=== PATIENT | male | born 1950 | race Caucasian/White ===

== ENCOUNTER 2020-09-08 18:39 | Emergency (ER) | payer MEDICARE, SELFPAY ==
--- NOTE | ~2020-09-08 | XR_ITS ---
EXAMINATION: XR hip RT 2V w AP pelvis INDICATION: Right hip pain TECHNIQUE: AP view the pelvis and two views of the right hip are obtained. COMPARISON: CT, 12/22/2018 FINDINGS: Bone alignment is normal. There is no fracture. There are phleboliths of the pelvis. Calcif ied atherosclerosis is noted. IMPRESSION: 1. No displaced fracture identified. If there is high clinical suspicion for fracture, consider CT. Reviewed, dictated and finalized at location A. [facility] IMPRESSION: 1. No displaced fracture identified. If there is high clinical suspicion for fr acture, consider CT.
[2020-09-08 18:42] VITALS: BP 169/82; PULSE 68; RESP 14; TEMP 36.7; O2SAT 98
--- NOTE | 2020-09-08 20:22 | ED.FALL ---
HPI - Fall General Chief Complaint: Fall Stated Complaint: right hip pain, fall Time Seen by Provider: 09/08/20 20:16 Source: patient Mode of arrival: ambulatory Limitations: no limitations History of Present Illness HPI Narrative: Patient is a 69-year-old male complaining of right hip pain after he fell off his hammock prior to arrival. Patient's he was trying to get off and he lost his balance and fell on this right side. Patient states his pain is a 4 out of 10, aching, nonradiating. Patient denies any head, neck, chest, abdomen, back or any other extremity pain/injury. Patient denies any LOC. Patient states his pain is mild and does not want anything for pain at this time. Related Data Home Medications Medication Instructions Recorded Confirmed aspirin 81 mg tablet,delayed 81 mg PO DAILY 06/23/19 release atorvastatin 40 mg tablet 40 mg PO DAILY 06/23/19 carvedilol 3.125 mg tablet 3.125 mg PO Q12H 06/23/19 doxycycline hyclate 100 mg capsule 100 mg PO DAILY 06/23/19 ezetimibe 10 mg tablet 10 mg PO DAILY 06/23/19 lisinopril 40 mg tablet 40 mg PO DAILY 06/23/19 Allergies Allergy/AdvReac Type Severity Reaction Status Date / Time Sulfa (Sulfonamide Allergy Intermediate Unverified 09/14/19 11:55 Antibiotics) atorvastatin Allergy Unknown Myalgias Verified 09/14/19 11:55 Review of Systems Review of Systems: All systems reviewed & are unremarkable except as noted in HPI and below Constitutional: Constitutional: Denies body ache(s), Denies chills, Denies excessive sweating, Denies fatigue, Denies fever(s), Denies headache(s), Denies lethargy, Denies malaise, Denies weakness and Denies weight loss Eyes: Eyes: Denies blurry vision, Denies change in vision and Denies loss of vision ENT: Denies dizziness, Denies ear discharge, Denies headache(s), Denies lip swelling, Denies epistaxis, Denies nasal congestion, Denies neck pain, Denies throat swelling and Denies tongue swelling Cardiovascular: Cardiovascular: Denies chest pain, Denies chest pain at rest, Denies chest pain with activity, Denies diaphoresis, Denies rapid heart rate, Denies edema, Denies irregular heart rhythm, Denies lightheadedness, Denies palpitations, Denies dyspnea and Denies dyspnea on exertion Respiratory: Respiratory: Denies chest congestion, Denies cough, Denies hemoptysis, Denies dyspnea and Denies dyspnea on exertion Gastrointestinal: Gastrointestinal: Denies abdominal pain, Denies melena, Denies hematochezia, Denies diarrhea, Denies nausea, Denies vomiting and Denies hematemesis Musculoskeletal: Musculoskeletal: Denies abnormal gait, Denies deformity, Denies joint swelling, Denies limited range of motion, Denies neck pain and Denies numbness Neurologic: Denies Abnormal speech present, Denies abnormal gait, Denies confusion, Denies dizziness, Denies headache(s), Denies focal weakness, Denies loss of vision, Denies numbness, Denies Other visual disturbances, Denies Sensory deficit (Neuro) and Denies weakness Psychiatric: Psychiatric: Denies confusion, Denies depression, Denies auditory hallucinations, Denies homicidal ideation and Denies suicidal ideation Endocrine: Endocrine: Denies cold intolerance, Denies excessive sweating, Denies fatigue, Denies heat intolerance and Denies palpitations Hematologic/Lymphatic: Hematologic/Lymphatic: Denies easy bleeding and Denies easy bruising Allergic/Immunologic: Allergic/Immunologic: Denies lip swelling, Denies throat swelling and Denies tongue swelling PMFSH Family History Family History Father Diabetes mellitus Hypertension Family history of elevated blood lipids Other Family history of cardiovascular disease Family history of coronary artery disease Family history of malignant neoplasm of uterus Social History Social History Smoking status: Former smoker Second hand tobacco smoke e
[2020-09-08 21:22] VITALS: BP 159/88; PULSE 68; RESP 16; TEMP 36.7; O2SAT 98
== END 2020-09-08 21:23 | disposition home or self-care (01) ==
LOC: ANHED 20:37
PROVIDERS: Emergency Provider Emergency Medicine; PCP Student in an Organized Health Care Education/Training Program
DX: S76.011A Strain of muscle, fascia and tendon of right hip, initial encounter (principal); S70.01XA Contusion of right hip, initial encounter; Z87.891 Personal history of nicotine dependence; W17.89XA Other fall from one level to another, initial encounter
CPT/HCPCS: 73502; 99283

== ENCOUNTER 2020-12-12 13:59 | Emergency (ER) | payer MEDICARE, SELFPAY ==
[2020-12-12 14:06] VITALS: BP 150/73; PULSE 72; RESP 12; TEMP 37.4; O2SAT 99
[2020-12-12 14:15] VITALS: BP 150/73; PULSE 72; RESP 12; TEMP 37.4; O2SAT 99
--- NOTE | 2020-12-12 14:15 | ECG_ITS ---
Measurements Intervals [place] Rate: 62 P: 35 MD: 214 QRS: -31 QRSD: 96 T: 68 QT: 408 QTc: 415 Interpretive Statements SINUS RHYTHM WITH SINUS ARRHYTHMIA WITH FIRST DEGREE AV BLOCK LEFT AXIS DEVIATION INCOMPLETE RIGHT BUNDLE BRANCH BLOCK VOLTAGE CRITERIA FOR LVH MINIMAL Q WAVES- HIGH LATERAL LEADS ABNORMAL ECG Electronically Signed On 12-12-2020 19:08:57 CDT by Mckay Hicks D.O.
--- NOTE | 2020-12-12 14:50 | ED.GENADULT ---
HPI - General Adult General Chief complaint: Abdominal Pain Stated complaint: abdominal pain Source: patient and RN notes reviewed Limitations: no limitations History of Present Illness HPI narrative: The Covid vaccinated patient- an occ drinker/ remote exsmoker on several meds incl for IRDM, ASHD-presents with right epigastric and chest pain. Patient states he has a 5-day history of right-sided pain, which worsened in the last day. Patient notes he had a fever to 100.9, and definite anorexia with eating this week. Then last night he had an hour long episode of right parasternal chest pain, reminiscent of his previous AL for which he has had a stent, and a noncontributory stress test last year [[facility]]. 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 No fever now, cough, S OB, loss of taste/smell, calf pain/edema , stool changes, vomiting/diarrhea; he had prior non contributory colonoscopy in the past. Vital signs and screening EKG are noncontributory Related Data Home Medications Medication Instructions Recorded Confirmed aspirin 81 mg tablet,delayed 81 mg PO DAILY 06/23/19 10/11/20 release carvedilol 3.125 mg tablet 3.125 mg PO Q12H 06/23/19 10/11/20 ezetimibe 10 mg tablet 10 mg PO DAILY 06/23/19 10/11/20 biotin 1 mg tablet 1 mg PO DAILY 10/17/20 losartan 50 mg tablet 50 mg PO DAILY 10/17/20 multivitamin 1 tablet PO DAILY 10/17/20 Trulicity 12/12/20 12/12/20 Allergies Allergy/AdvReac Type Severity Reaction Status Date / Time Sulfa (Sulfonamide Allergy Intermediate Rash Unverified 10/11/20 08:04 Antibiotics) atorvastatin Allergy Unknown Myalgias Verified 09/14/19 11:55 Review of Systems Review of Systems: Narrative: General/Constitutional: No weight loss,fever Eyes: N0: Redness,discharge Ears/Nose/Throat: No: Epistaxis,ear discharge Respiratory: Denies: Hemoptysis Gastrointestinal: No Vomiting, Bleeding-rectal Skin: No Lumps, eruption Neurologic: No Focal Weakness,Sz Hematologic: Denies: Petechiae/Purpura Psychiatric: No: Suicida ideationl All Other Systems: Reviewed and Negative [facility] Past Medical History Medical History (Updated 10/17/20 @ 09:19 by Alma Preciado MD) Diabetes mellitus High cholesterol HTN (hypertension) Surgical History Surgical History (Updated 10/11/20 @ 08:09 by Angeles Sims [facility]) H/O lumpectomy H/O right inguinal hernia repair S/P coronary artery stent placement Family History Family History Father Diabetes mellitus Hypertension Family history of elevated blood lipids Other Family history of cardiovascular disease Family history of coronary artery disease Family history of malignant neoplasm of uterus Social History Social History (Updated 10/11/20 @ 08:10 by Angeles Sims [facility]) Smoking status: Former smoker Second hand tobacco smoke exposure: No Smoking end date: 07/07/82 Alcohol intake: current Substance use: unknown Gender identity (if verbalized by the patient): Male Comments At time of signature, agree with nursing past medical, surgical, social and family history. There is no relevant family history pertinent to the presenting complaint Exam Narrative: Exam Narrative: General Appearance: Well appearing, No distress EYE: PERRLA, Conjunctiva clear Ears: External ear normal Nose: Normal nose Mouth/Throat: Normal appearing, Normal lips Neck: Supple Respiratory: Airway patent, No respiratory distress Cardiovascular: RRR, nontender chest wall Abdomen: Soft, RUQ tender, No massess, No organomegaly (no rebound/ surgical signs), Musculoskeletal: Full ROM Skin: Warm, Dry Neurological: A&O x3, CN II-X intact Psychiatric: Normal mood, Normal affect Course Course Emergency Course: EKG normal sinus rhythm rate 62 bpm, firs
== END 2020-12-12 15:00 | disposition home or self-care (01) ==
PROVIDERS: Emergency Provider Emergency Medicine; PCP Student in an Organized Health Care Education/Training Program
DX: R10.13 Epigastric pain (principal); Z87.891 Personal history of nicotine dependence; E78.00 Pure hypercholesterolemia, unspecified; E11.9 Type 2 diabetes mellitus without complications; I10 Essential (primary) hypertension; Z95.5 Presence of coronary angioplasty implant and graft
CPT/HCPCS: 93005; 99215; G0463

== ENCOUNTER 2020-12-12 15:36 | Inpatient (IN) | payer MEDICARE, SELFPAY ==
[2020-12-12] VITALS (15 sets, daily range): BP systolic 125–155; BP diastolic 58–101; PULSE 60–84; RESP 12–20; TEMP 36.3–37; O2SAT 95–100; BMI 31.3
--- NOTE | ~2020-12-12 | CT_ITS ---
EXAMINATION: CT abdomen pelvis w con DATE: 12/12/2020 18:26 INDICATION: Periumbilical pain. TECHNIQUE: Computed tomography (CT) of the abdomen and pelvis was performed with 100 mL Omnipaque-350 intravenous contrast. Automated exposure control and iterative reconstruction technique were employe d. The dose-length product was 827.62 mGy-cm. COMPARISON: 12/22/2018 FINDINGS: 4 mm left lower lobe nodule. Heart size is normal. Atherosclerotic coronary artery calcific location. No pericardial or pleural effusion. Tiny calcified gallstones in the dependent aspect of the normal- appearing gallbladder. No gallbladder wall thickening or pericholecystic inflammatory stranding to crisostomo ggest acute cholecystitis. Liver, spleen and bilateral adrenal glands are normal. 2 mm nonobstructing stone at the lower pole calyx of the left kidney. Small accessory right renal artery and vein supply ing the lower pole. The body and tail the pancreas appears edematous and thickened with mild peripanc reatic inflammatory stranding consistent with acute interstitial pancreatitis. No more discrete perip ancreatic fluid collections. Short segment of small bowel extends into a small wide mouthed umbilical hernia. No bowel obstruction. Normal appendix. Moderate diverticulosis with descending and sigmoid c olon predominance without surrounding inflammation trace stranding to suggest diverticulitis. Bladder is normal. Small fat-containing right inguinal hernia. Mild to moderate lumbar and lower thoracic sp ondylosis. 2 mm anterolisthesis L4 on L5 with severe bilateral facet osteoarthritis at this level. IMPRESSION: 1. Radiographically uncomplicated acute interstitial pancreatitis. Correlate with amylase and lipase levels. 2. Cholelithiasis. 3. Nonobstructing 2 mm left renal stone. 4. Small to moderate-sized fat-containing right inguinal hernia. 5. Small widemouthed umbilical hernia containing a very short segment of nonobstructed small bowel. 6. 4 mm left lower lobe nodule. If the patient is low risk for lung cancer, no follow-up is needed. I f the patient is high risk (i.e., history of smoking or asbestos or significant radiation exposure), optional follow-up chest CT could be considered at 12 months. Reviewed, dictated and finalized at location A. IMPRESSION: 1. Radiographically uncomplicated acute interstitial pancreatitis. Correlate wi th amylase and lipase levels. 2. Cholelithiasis. 3. Nonobstructing 2 mm left renal stone. 4. Small to moderate-sized fat-containing right inguinal hernia. 5. Small widemouthed umbilical hernia containing a very short segment of nonobs tructed small bowel. 6. 4 mm left lower lobe nodule. If the patient is low risk for lung cancer, no follow-up is needed. If the patient is high risk (i.e., history of smoking or a sbestos or significant radiation exposure), optional follow-up chest CT could b e considered at 12 months.
--- NOTE | ~2020-12-12 | US_ITS ---
EXAMINATION: US abdomen limited DATE: 12/13/2020 09:04 INDICATION: Cholelithiasis. TECHNIQUE: Multiple grayscale and Doppler ultrasound images of the abdomen were obtained. COMPARISON: CT abdomen and pelvis 12/12/2020 FINDINGS: The visualized portions of the head and body of the pancreas are hypoechoic, consistent wit h acute pancreatitis. The liver is normal without focal lesion. No liver surface nodularity. There is normal flow in main portal vein. The gallbladder is normal in size and contains polyps measuring up to 7 mm. No gallstones. No gallbladder wall thickening or sonographic Ac sign. The common duct is normal and measures 5 mm. IMPRESSION: 1. Acute pancreatitis. 2. Gallbladder polyps measuring up to 7 mm, probably benign. Ultrasound is recommended in one year. Reviewed, dictated and finalized at location A. IMPRESSION: 1. Acute pancreatitis. 2. Gallbladder polyps measuring up to 7 mm, probably benign. Ultrasound is bria mmended in one year.
[2020-12-12 16:10] LABS: Basophils Percent Auto 0.3 % (0.2-1.2); Eosinophils Absolute Auto 0.2 K/mm3 (0-0.3); Hematocrit 41.3 % (42.0-52.0); Immature Granulocyte Absolute 0.02 K/mm3 (0.00-0.031); Immature Granulocyte Percent A 0.2 % (0-0.5); Lymphocytes Absolute Auto 1.85 K/mm3 (0.9-3.2); Lymphocytes Percent Auto 18.4 % (18.3-44.2); Mean Corpuscular HGB Conc 33.9 g/dl (32-36); Mean Corpuscular Volume 88.6 fl (80-100); Mean Platelet Volume 8.8 fl (7.4-10.4); Monocytes Percent Auto 9.7 % (2.6-8.5); Neutrophils Percent Auto 69.4 % (45.5-73.1); Platelet Count Result 169 k/mm3 (150-375); Red Blood Count 4.66 M/mm3 (4.6-6.20); Red Cell Distribution Width 12.1 % (11.5-14.5); White Blood Count 10.1 K/mm3 (4.5-10.0)
[2020-12-12 16:34] LABS: Alanine Aminotransferase 8 U/L (4-50); Albumin Level 4.1 g/dL (3.5-5.1); Alkaline Phosphatase 83 U/L (38-126); Anion Gap 10 mmol/L (8-16); Aspartate Amino Transferase 21 U/L (17-59); Bilirubin,Total 0.9 mg/dL (0.2-1.3); Blood Urea Nitrogen 17 mg/dL (9-20); Calcium 10.1 mg/dL (8.4-10.2); Carbon Dioxide 30 mmol/L (22-30); Chloride 98 mmol/L (98-107); Estimated CRCL calculation 67 ml/min; Estimated Glomerular Filt Rate > 60; Glucose 219 mg/dL (75-110); Potassium 4.3 mmol/L (3.4-5.0); Sodium 138 mmol/L (137-145)
[2020-12-12 16:42] LABS: Lipase 3653 U/L (23-300)
--- NOTE | 2020-12-12 17:18 | ED.ABDPAIN ---
HPI - Abdominal Pain General Chief Complaint: Abdominal Pain Stated Complaint: Abd Pain Time Seen by Provider: 12/12/20 17:03 History of Present Illness HPI narrative: 70 yo male w/ h/o htn, DM, HLD presents to the ED for abdominal pain. He reports that he has 3 seperate pains. He has shap epigastric pain that he been there intermittently since last . This is worse after eating. He also has periumbilical pain radiating to the back. this is aching and constant. He also reports mild dull pain in the RLQ, which he says may be due to a known hernia in that area. No prior surgeries. Related Data Home Medications Medication Instructions Recorded Confirmed aspirin 81 mg tablet,delayed 81 mg PO DAILY 06/23/19 10/11/20 release carvedilol 3.125 mg tablet 3.125 mg PO Q12H 06/23/19 10/11/20 ezetimibe 10 mg tablet 10 mg PO DAILY 06/23/19 10/11/20 biotin 1 mg tablet 1 mg PO DAILY 10/17/20 losartan 50 mg tablet 50 mg PO DAILY 10/17/20 multivitamin 1 tablet PO DAILY 10/17/20 Trulicity 12/12/20 12/12/20 Allergies Allergy/AdvReac Type Severity Reaction Status Date / Time Sulfa (Sulfonamide Allergy Intermediate Rash Verified 12/12/20 18:27 Antibiotics) atorvastatin Allergy Unknown Myalgias Verified 09/14/19 11:55 Review of Systems Review of Systems: All systems reviewed & are unremarkable except as noted in HPI and below Constitutional: Constitutional: Denies chills and Denies fever(s) Cardiovascular: Cardiovascular: Denies chest pain Respiratory: Respiratory: Denies dyspnea Gastrointestinal: Gastrointestinal: Reports abdominal pain, Denies diarrhea and Denies vomiting Genitourinary: Genitourinary: Denies hematuria and Denies dysuria Musculoskeletal: Musculoskeletal: Reports back pain Neurologic: Denies confusion, Denies dizziness and Denies weakness [facility] Past Medical History Medical History Diabetes mellitus High cholesterol HTN (hypertension) Surgical History Surgical History H/O lumpectomy H/O right inguinal hernia repair S/P coronary artery stent placement Family History Family History Father Diabetes mellitus Hypertension Family history of elevated blood lipids Other Family history of cardiovascular disease Family history of coronary artery disease Family history of malignant neoplasm of uterus Social History Social History Smoking status: Former smoker Second hand tobacco smoke exposure: No Smoking end date: 07/07/82 Alcohol intake: current Substance use: unknown Gender identity (if verbalized by the patient): Male Exam Const: General: healthy appearing, no acute distress and alert Orientation/consciousness: patient oriented x3 HENMT: Head: normal to inspection Neck: Neck: normal visual inspection Resp: Effort & Inspection: normal respiratory effort Auscultation: clear to auscultation bilaterally, no rales, no rhonchi and no wheezes Cardio: Jugular venous distension: no JVD Rate: regular rate Rhythm: regular rhythm Heart sounds: no murmurs GI: Inspection: non-distended GI Palp: Yes Soft to palpation, Yes Tenderness to palpation present (GI) (epigastrium), No Guarding due to palpation present (GI) and No Rebound tenderness present Skin: General skin exam: normal color Neuro: General: patient oriented x3 and moves all extremities Speech: normal speech Extrem: General: no edema Psych: Appearance: well kempt Affect: normal affect Course Vital Signs Vital signs: Vital Signs Temperature 36.3 C L 12/12/20 15:58 Pulse Rate 60 12/12/20 15:58 Respiratory Rate 18 12/12/20 15:58 Blood Pressure 146/70 H 12/12/20 15:58 Pulse Oximetry 98 12/12/20 15:58 Temperature 36.3 C L 12/12/20 15:58 Pulse Rate 66 06/0
[2020-12-12 18:00] LABS: Add Urine Microscopic? YES; Appearance Urine Clear (Clear); Bacteria Urine Trace /hpf; Bilirubin Urine Negative (Negative); Blood Urine Negative (Negative); Color Urine Yellow (Yellow); Glucose Urine UA 1+ mg/dL (Negative); Ketones Urine Negative (Negative); Leukocyte Esterase Ur Negative LEU/UL (Negative); Nitrate Urine Negative (Negative); Protein Urine 2+ mg/dL (Negative); RBC Urine 0-2 /hpf (0-2); Specific Grav Ur 1.021 (1.001-1.035); Urobilinogen Urine Negative mg/dL (<2.0); WBC Urine 0-3 /hpf
[2020-12-12] MEDS: SODIUM CHLORIDE 0.9% IV 1,000 ML 999 ML IV CONT (18:33)
--- NOTE | 2020-12-12 20:08 | PM.IMHP ---
H&P: HPI History of Present Illness Date/Time: 12/12/20 20:08 Chief Complaint: Abdominal pain Narrative: This is a 70-year-old male with past medical history significant for right inguinal hernia, ventral hernia plans for laparoscopic hernia repair with mesh placement. Patient presented today to the emergency room due to abdominal pain for the last couple of days or so poor appetite pain is localized in the epigastric area and currently localized to red right upper quadrant nonradiating. He denies any nausea vomiting diarrhea no fevers no rigors no chills no sputum production no cough no shortness of breath. He has being in his usual state of health he has been trying to lose weight in preparation for his upcoming hernia repair surgery. Preliminary workup was significant for elevated lipase and CT of abdomen and pelvis with cholelithiasis and interstitial pancreatitis. Review of Systems Review of Systems: Narrative: Epigastric abdominal pain now localized to the right upper quadrant Constitutional: Constitutional: Denies chills, Denies fatigue, Denies malaise, Denies weakness and Reports weight loss (Intentional in preparation for his surgery) Eyes: Eyes: Denies change in vision ENT: Denies dysphagia, Denies nasal congestion, Denies nasal discharge, Denies nasal obstruction and Denies odynophagia Cardiovascular: Cardiovascular: Denies chest pain with activity, Denies irregular heart rhythm, Denies leg edema, Denies lightheadedness, Denies radiating jaw, neck or arm pain, Denies palpitations and Denies dyspnea on exertion Respiratory: Respiratory: Denies cough, Denies dyspnea and Denies wheezing Gastrointestinal: Gastrointestinal: Reports abdominal pain (Right upper quadrant), Denies diarrhea and Denies nausea Genitourinary: Genitourinary: Denies dysuria and Denies flank pain Musculoskeletal: Musculoskeletal: Denies arthralgias, Denies joint swelling and Denies muscle weakness Integumentary/Breasts: Skin/Breast: Denies rash Neurologic: Denies dizziness, Denies focal weakness and Denies weakness Psychiatric: Psychiatric: Denies no additional psychiatric complaints Endocrine: Endocrine: Denies no additional endocrine complaints Hematologic/Lymphatic: Hematologic/Lymphatic: Denies no additional hematologic/lymphatic complaints Allergic/Immunologic: Allergic/Immunologic: Denies no additional allergic/immunologic complaints [facility] Past Medical History Medical History (Updated 12/12/20 @ 22:20 by James Rome MD) Diabetes mellitus High cholesterol HTN (hypertension) Surgical History Surgical History (Updated 12/12/20 @ 22:20 by James Rome MD) H/O lumpectomy H/O right inguinal hernia repair S/P coronary artery stent placement Family History Family History Father Diabetes mellitus Hypertension Family history of elevated blood lipids Other Family history of cardiovascular disease Family history of coronary artery disease Family history of malignant neoplasm of uterus Social History Social History Smoking status: Former smoker Second hand tobacco smoke exposure: No Smoking end date: 07/07/82 Alcohol intake: current Drinks per week: 4 Substance use: never Gender identity (if verbalized by the patient): Male Spiritual care concerns: No Meds Home Medications and Allergies Home Medications Medication Instructions Recorded Confirmed Type aspirin 81 mg tablet,delayed 81 mg PO DAILY 06/23/19 12/12/20 History release carvedilol 3.125 mg tablet 3.125 mg PO Q12H 06/23/19 12/12/20 History ezetimibe 10 mg tablet 10 mg PO DAILY 06/23/19 12/12/20 History biotin 1 mg tablet 1 mg PO DAILY 10/17/20 12/12/20 History losartan 50 mg tablet 50 mg PO DAILY 10/17/20 12/12/20 History multivitamin 1 tablet PO DAILY 10/17/20 12/12/20 History pen needle, diabetic 32 gauge x #20 ea
--- NOTE | 2020-12-12 21:47 | ADMGEN ---
This patient, Jorge Alberto Iniguez Jr., was admitted to Medical Room 240-01. Patient/family oriented to hospital policies and general routines including ID bracelet, bed and alarms, visiting hours, pain management, procedures, bathroom and other care routines, personal items, smoking policy, room service/diet, and visiting hours. Information on how to activate the Rapid Response Team has been discussed. Patient/Family are encouraged to report perceived risks to care and to ask questions if they do not understand what they are told or what they should do.
[2020-12-12] MEDS: LACTATED RINGERS 1,000 ML 85 ML IV CONT (22:15)
[2020-12-12] MEDS: GABAPENTIN 300 MG CAPSULE 600 MG PO (23:56)
[2020-12-12] MEDS: carvediloL 3.125 MG TABLET PO (23:56)
[2020-12-12] MEDS: INSULIN GLARGINE (*BKC) 100 UNITS/ML 30 UNITS SUB-Q (23:57)
[2020-12-13 00:04] LABS: Glucose Point of Care 162 mg/dl (65-105)
[2020-12-13 06:00] VITALS: BP 117/50; PULSE 65; RESP 20; TEMP 36.9; O2SAT 98
[2020-12-13] MEDS: GABAPENTIN 300 MG CAPSULE 600 MG PO ×3 (06:24→20:56)
[2020-12-13 08:35] LABS: Alanine Aminotransferase 6 U/L (4-50); Albumin Level 3.6 g/dL (3.5-5.1); Alkaline Phosphatase 69 U/L (38-126); Anion Gap 8 mmol/L (8-16); Aspartate Amino Transferase 18 U/L (17-59); Bilirubin,Total 0.8 mg/dL (0.2-1.3); Blood Urea Nitrogen 13 mg/dL (9-20); Calcium 9.1 mg/dL (8.4-10.2); Carbon Dioxide 27 mmol/L (22-30); Chloride 102 mmol/L (98-107); Estimated CRCL calculation 73 ml/min; Estimated Glomerular Filt Rate > 60; Glucose 105 mg/dL (75-110); Hemoglobin A1C 7.7 % (<5.7); Potassium 3.9 mmol/L (3.4-5.0); Sodium 137 mmol/L (137-145)
[2020-12-13 09:05] LABS: Lipase 2045 U/L (23-300)
[2020-12-13 09:11] VITALS: PULSE 70
[2020-12-13] MEDS: carvediloL 3.125 MG TABLET PO ×2 (09:11→20:55)
[2020-12-13] MEDS: LOSARTAN POTASSIUM 50 MG TABLET PO (09:11)
[2020-12-13 09:28] LABS: Glucose Point of Care 114 mg/dl (65-105)
[2020-12-13 09:58] VITALS: O2SAT 98
[2020-12-13] MEDS: LACTATED RINGERS 1,000 ML 85 ML IV CONT ×2 (10:29→21:49)
[2020-12-13 12:24] LABS: Glucose Point of Care 89 mg/dl (65-105)
[2020-12-13 14:00] VITALS: BP 128/64; PULSE 65; RESP 16; TEMP 36.9; O2SAT 97
--- NOTE | 2020-12-13 16:05 | WPDGICN ---
Assessment and Plan Assessment and plan (1) Acute pancreatitis: Code(s): K85.90 - Acute pancreatitis without necrosis or infection, unspecified Status: Acute Assessment and Plan: first episode, noted cholelithiasis and wonder if could be related also he is using dulaglutide which has been linked to cases of pancreatitis (along with other GLP-1 products), this medication should be discontinued going forward (2) Cholelithiasis: Code(s): K80.20 - Calculus of gallbladder without cholecystitis without obstruction Status: Acute Assessment and Plan: normal liver enzymes he has seen Dr Hoffman in the past because abdominal hernias but has not had surgery yet will ask him to see him to see if may benefit from cholecystectomy in near future (3) Nausea: Code(s): R11.0 - Nausea Status: Acute Assessment and Plan: liquid diet as tolerated (less pain today and feeling better) (4) Epigastric pain: Code(s): R10.13 - Epigastric pain Status: Acute (5) Type 2 diabetes mellitus with hyperglycemia, with long-term current use of insulin: Code(s): E11.65 - Type 2 diabetes mellitus with hyperglycemia; Z79.4 - group home (current) use of insulin Status: Acute Assessment and Plan: on medical treatment (6) Neuropathy: Code(s): G62.9 - Polyneuropathy, unspecified Status: Acute GI Consult Note Consult date/time: 12/13/20 16:05 Reason for consult: acute pancreatitis HPI: Jorge Alberto Iniguez Jr. is a 70 year old male with history of DM on dulaglutide with chronic abdominal pain from neuropathy here with progressive epigastric pain started about 5 days ago but worsened day of admission, also nausea and post-prandial pain, now eating because of same. Pain was moderate, sharp in nature. ER evaluation and diagnosed with acute pancreatitis, CT scan reviewed and showed uncomplicated acute interstitial pancreatitis, cholelithiasis, small to moderate-sized fat-containing right inguinal hernia, small widemouthed umbilical hernia containing a very short segment of nonobstructed small bowel. Lipase 2000, liver enzymes normal. He only drinks socially but has not had anything to drink for over a month, no previous pancreatitis. Pain is improved today. Review of Systems Constitutional: Constitutional: Denies chills Eyes: Eyes: Denies blurry vision ENT: Reports Normal hearing present Cardiovascular: Cardiovascular: Denies chest pain Respiratory: Respiratory: Denies dyspnea Gastrointestinal: Gastrointestinal: Reports abdominal pain and Reports nausea Genitourinary: Genitourinary: Denies dysuria Musculoskeletal: Musculoskeletal: Denies neck pain Integumentary/Breasts: Skin/Breast: Denies dry skin Neurologic: Denies headache(s) Psychiatric: Psychiatric: Denies anxiety [facility] Past Medical History Medical History (Updated 12/13/20 @ 16:10 by Yared Piedra MD) Cholelithiasis Diabetes mellitus Epigastric pain High cholesterol HTN (hypertension) Nausea Surgical History Surgical History (Updated 12/12/20 @ 22:20 by James Rome MD) H/O lumpectomy H/O right inguinal hernia repair S/P coronary artery stent placement Family History Family History Father Diabetes mellitus Hypertension Family history of elevated blood lipids Other Family history of cardiovascular disease Family history of coronary artery disease Family history of malignant neoplasm of uterus Social History Social History Smoking status: Former smoker Second hand tobacco smoke exposure: No Smoking end date: 07/07/82 Alcohol intake: current Drinks per week: 4 Substance use: never Gender identity (if verbalized by the patient): Male Spiritual care concerns: No Meds Home Medications and Allergies Home Medications Medication Inst
[2020-12-13 16:18] LABS: Glucose Point of Care 65 mg/dl (65-105)
--- NOTE | 2020-12-13 16:22 | PM.IMPN ---
Progress Note: A&P Assessment and Plan (1) Acute pancreatitis: Code(s): K85.90 - Acute pancreatitis without necrosis or infection, unspecified Status: Acute Assessment and Plan: Uncomplicated acute interstitial pancreatitis noted on CT. Lipase elevated up to 3600, declined down to about 2000 today. Epigastric pain has resolved. CT suggested gallstones with normal appearing gallbladder, however not present on US, which instead suggested polyps. LFTs and total bilirubin within normal limits. Denies recent alcohol use. Dulaglutide (GLP-1) may be responsible. Appreciate gastroenterology consultation Advance to clear liquid diet. Continue to advance diet as tolerated Trend lipase Continue gentle IV fluids until tolerating diet (2) Type 2 diabetes mellitus with hyperglycemia, with long-term current use of insulin: Code(s): E11.65 - Type 2 diabetes mellitus with hyperglycemia; Z79.4 - keno terminal operator (current) use of insulin Status: Acute Assessment and Plan: A1c is 7.7. Blood sugars have been well controlled today. Continue Accu-Cheks, sliding scale insulin, and hypoglycemic protocol Continue Lantus with 20% dose reduction Will discontinue his dulaglutide given his pancreatitis. I will plan to be in contact with his PCP regarding alternative hypoglycemic agents (3) HTN (hypertension): Code(s): I10 - Essential (primary) hypertension Status: Acute Assessment and Plan: Blood pressures reviewed and are well controlled. Last BP 128/64. Continue losartan and carvedilol (4) Left lower lobe pulmonary nodule: Code(s): R91.1 - Solitary pulmonary nodule Status: Acute Assessment and Plan: 4 mm left lower lobe nodule evident on CT abdomen/pelvis. Patient reports history of 1 pack per day smoking, however quit approximately 30 years ago. Recommendations for repeat chest CT in 1 year (5) Umbilical hernia without mention of obstruction or gangrene: Qualifiers: Obstruction and gangrene presence: without obstruction or gangrene Qualified Code(s): K42.9 - Umbilical hernia without obstruction or gangrene Code(s): K42.9 - Umbilical hernia without obstruction or gangrene Status: Acute Assessment and Plan: Established with general surgery with plans for surgical repair. CT demonstrates nonobstructed small bowel segment in small umbilical hernia. Additional Plan Discussed questionable gallstones vs polyps with general surgeon, Dr. Hoffman. Patient is established with Dr. Hoffman and has plans for upcoming umbilical hernia surgery. Dr. Hoffman advises repeat gallbladder ultrasound prior to surgery to consider cholecystectomy concurrent with hernia surgery. Subjective Date/time seen: 12/13/20 16:22 Interval history: Date of service: 12/13/2020 Jorge Alberto Iniguez is a 70-year-old male with history of coronary artery disease, diabetes mellitus, hyperlipidemia, and hypertension who is seen in follow-up for pancreatitis. He is feeling much better today. He rates his epigastric pain is 1/10. He has not required any analgesics today. He denies nausea or vomiting. No fever or chills. Denies diarrhea. He has been able to ambulate without difficulty and denies dizziness or lightheadedness. No urinary symptoms. He has been NPO today and is here to advance his diet. He denies shortness of breath, cough, or chest pain. His last bowel movement was about 2 days ago. He has no other concerns at this time. He reports that he had been following a strict diet for over 3 months, but reports that recently he and his have been ?slipping and he has indulged in fattier foods. He denies recent alcohol intake. Review of Systems Review of Systems: All systems reviewed & are unremarkable except as noted in HPI and below Exam Narrative: Exam Narrative: Mr. Iniguez is a well-nourished, well-appearing 70-year-old male who is lying supin
--- NOTE | 2020-12-13 16:27 | PC.NURSE ---
Patient's blood sugar 65. Patient refused oral glucose gel, so applejuice was given. Will recheck blood sugar in 15 minutes.
[2020-12-13 16:46] LABS: Glucose Point of Care 75 mg/dl (65-105)
--- NOTE | 2020-12-13 17:16 | PM.CNGS ---
History of Present Illness Consult details Consult date: 12/13/20 Reason for consult: abdominal pain Requesting physician: Yared Piedra MD Narrative: Patient is a 70 yo insulin dependent diabetic man who presented to the ER yesterday with sharp epigastric pain for the past 5 days. He was found to have an elevated lipase. CT scan showed acute pancreatitis as well as gallstones. He feels better today. He has been started on a clear liquid diet this evening. Patient has seen Dr. Hoffman in the office in December 2018 regarding umbilical and right inguinal hernias. He was recommended to lose weight before proceeding with elective repair. Patient was seen again October. He had lost 40 lbs and now the hernias were minimally symptomatic. He planned to lose 20 more [address] see Dr[address] Hoffman again in January. He is seen now in consultation for acute biliary pancreatitis. [facility] Past Medical History Medical History (Updated 12/13/20 @ 16:40 by Bita Brunner PA-C) Cholelithiasis Diabetes mellitus Epigastric pain High cholesterol HTN (hypertension) Nausea Surgical History Surgical History (Updated 12/12/20 @ 22:20 by James Rome MD) H/O lumpectomy H/O right inguinal hernia repair S/P coronary artery stent placement Family History Family History Father Diabetes mellitus Hypertension Family history of elevated blood lipids Other Family history of cardiovascular disease Family history of coronary artery disease Family history of malignant neoplasm of uterus Social History Social History Smoking status: Former smoker Second hand tobacco smoke exposure: No Smoking end date: 07/07/82 Alcohol intake: current Drinks per week: 4 Substance use: never Gender identity (if verbalized by the patient): Male Spiritual care concerns: No Meds Home Medications and Allergies Home Medications Medication Instructions Recorded Confirmed Type aspirin 81 mg tablet,delayed 81 mg PO DAILY 06/23/19 12/12/20 History release carvedilol 3.125 mg tablet 3.125 mg PO Q12H 06/23/19 12/12/20 History ezetimibe 10 mg tablet 10 mg PO DAILY 06/23/19 12/12/20 History biotin 1 mg tablet 1 mg PO DAILY 10/17/20 12/12/20 History losartan 50 mg tablet 50 mg PO DAILY 10/17/20 12/12/20 History multivitamin 1 tablet PO DAILY 10/17/20 12/12/20 History pen needle, diabetic 32 gauge x #20 ea 10/17/20 12/12/20 Rx / dulaglutide 1.5 mg/0.5 mL 1.5 mg SUBCUT WEEKLY 84 Days #6 ml 11/06/20 12/12/20 Rx subcutaneous pen injector gabapentin 300 mg capsule 600 mg PO TID #540 cap 11/07/20 12/12/20 Rx insulin syringe-needle U-100 1 mL #100 ea 12/11/20 12/12/20 Rx 31 gauge x 11/19 insulin glargine [Lantus U-100 30 unit SUBCUT HS 12/12/20 12/12/20 History Insulin] rosuvastatin 5 mg PO QPM 12/12/20 12/12/20 History Allergies Allergy/AdvReac Type Severity Reaction Status Date / Time Sulfa (Sulfonamide Allergy Intermediate Rash Verified 12/13/20 05:39 Antibiotics) atorvastatin Allergy Unknown Myalgias Verified 12/13/20 05:39 Vital Signs Vital Signs - 24 hr 12/12/20 17:36 12/12/20 17:49 12/12/20 17:52 Temperature Pulse Rate 69 68 66 Respiratory Rate 16 20 20 Blood Pressure 145/80 H Pulse Oximetry 98 98 98 12/12/20 17:53 12/12/20 18:00 12/12/20 18:01 Temperature Pulse Rate 67 66 66 Respiratory Rate 14 19 18 Blood Pressure 155/76 H Pulse Oximetry 98 98 100 12/12/20 18:28 12/12/20 18:29 12/12/20 18:34 Temperature Pulse Rate 69 69 66 Respiratory Rate 12 17 20 Blood Pressure 125/101 H Pulse Oximetry 96 95 99 12/12/20 18:45 12/12/20 18:46 12/12/20 21:03 Temperature Pulse Rate 65 66 68 Respiratory Rate 12 20 Blood Pressure 142/86 H 150/78 H Pulse Oximetry 95 98 100 12/12/20 22:00 12/12/20 23:56 12/13/20 06:00 Temperature 37.0 C 36.9 C Pulse R
[2020-12-13 17:49] LABS: Glucose Point of Care 190 mg/dl (65-105)
[2020-12-13 20:11] VITALS: BP 133/63; PULSE 65; RESP 16; TEMP 36.6; O2SAT 98
[2020-12-13] MEDS: INSULIN GLARGINE (*BKC) 100 UNITS/ML 24 UNITS SUB-Q (20:53)
[2020-12-13 20:55] VITALS: PULSE 65
[2020-12-13 21:18] LABS: Glucose Point of Care 249 mg/dl (65-105)
[2020-12-14 04:26] VITALS: BP 121/62; PULSE 66; RESP 16; TEMP 36.8; O2SAT 95
[2020-12-14 05:46] LABS: Hemoglobin 12.6 g/dL (14.0-18.0); Mean Corpuscular HGB Conc 34.1 g/dl (32-36); Mean Corpuscular Hemoglobin 29.4 pg (26-34); Mean Corpuscular Volume 86.4 fl (80-100); Mean Platelet Volume 9.2 fl (7.4-10.4); Platelet Count Result 180 k/mm3 (150-375); Red Blood Count 4.28 M/mm3 (4.6-6.20); Red Cell Distribution Width 11.9 % (11.5-14.5); White Blood Count 9.1 K/mm3 (4.5-10.0)
[2020-12-14 05:57] LABS: Alanine Aminotransferase 6 U/L (4-50); Albumin Level 3.4 g/dL (3.5-5.1); Alkaline Phosphatase 69 U/L (38-126); Anion Gap 6 mmol/L (8-16); Aspartate Amino Transferase 22 U/L (17-59); Bilirubin,Total 0.6 mg/dL (0.2-1.3); Blood Urea Nitrogen 12 mg/dL (9-20); Carbon Dioxide 32 mmol/L (22-30); Chloride 101 mmol/L (98-107); Estimated CRCL calculation 66 ml/min; Estimated Glomerular Filt Rate > 60; Glucose 126 mg/dL (75-110); Lipase 1548 U/L (23-300); Potassium 3.9 mmol/L (3.4-5.0); Sodium 139 mmol/L (137-145)
[2020-12-14] MEDS: GABAPENTIN 300 MG CAPSULE 600 MG PO ×2 (06:06→14:53)
[2020-12-14 07:57] VITALS: PULSE 60
[2020-12-14] MEDS: carvediloL 3.125 MG TABLET PO (07:57)
[2020-12-14] MEDS: LOSARTAN POTASSIUM 50 MG TABLET PO (07:58)
[2020-12-14 08:35] LABS: Glucose Point of Care 153 mg/dl (65-105)
[2020-12-14] MEDS: LACTATED RINGERS 1,000 ML 85 ML IV CONT (09:46)
[2020-12-14] MEDS: INSULIN ASPART (*BKC) 100 UNITS/ML SUB-Q (12:12)
[2020-12-14 12:13] LABS: Glucose Point of Care 259 mg/dl (65-105)
[2020-12-14 14:00] VITALS: BP 136/69; PULSE 69; RESP 18; TEMP 36.8; O2SAT 99
[2020-12-14] MEDS: SIMETHICONE 80 MG TAB.CHEW PO (14:53)
--- NOTE | 2020-12-14 15:22 | PM.IMPN ---
Progress Note: A&P Assessment and Plan (1) Acute pancreatitis: Code(s): K85.90 - Acute pancreatitis without necrosis or infection, unspecified Status: Acute Assessment and Plan: Uncomplicated acute interstitial pancreatitis noted on CT. Lipase elevated up to 3600, declined down to 1500 today. Epigastric pain has resolved. CT suggested gallstones with normal appearing gallbladder, however not present on US, which instead suggested polyps. LFTs and total bilirubin within normal limits. Denies recent alcohol use. Dulaglutide (GLP-1) may be responsible. Appreciate gastroenterology consultation Advance to low fat diet. Continue to advance diet as tolerated Trend lipase Hopeful discharge this evening if tolerating low fat dinner. Encourage cessation of alcohol use. Discontinue dulaglutide. (2) Type 2 diabetes mellitus with hyperglycemia, with long-term current use of insulin: Code(s): E11.65 - Type 2 diabetes mellitus with hyperglycemia; Z79.4 - technician terminal and repeater (current) use of insulin Status: Acute Assessment and Plan: A1c is 7.7. Blood sugars have been generally well controlled Continue Accu-Cheks, sliding scale insulin, and hypoglycemic protocol Continue Lantus with 20% dose reduction Will discontinue his dulaglutide given his pancreatitis. I have spoken with his motor and generator brush maker, Dr. Preciado. will plan to discharge him hematologic 60 units t.i.d. with meals. if he has issues of 40 this medication, we will switch him to glimepiride, per endocrinology recommendations. he will need to monitor his blood sugars closely and follow-up with endocrinology in 1-2 weeks to review blood sugar log. (3) HTN (hypertension): Code(s): I10 - Essential (primary) hypertension Status: Acute Assessment and Plan: Blood pressures reviewed and are well controlled. Last BP 136/69 Continue losartan and carvedilol (4) Left lower lobe pulmonary nodule: Code(s): R91.1 - Solitary pulmonary nodule Status: Acute Assessment and Plan: 4 mm left lower lobe nodule evident on CT abdomen/pelvis. Patient reports history of 1 pack per day smoking, however quit approximately 30 years ago. Recommendations for repeat chest CT in 1 year. Follow-up with PCP (5) Umbilical hernia without mention of obstruction or gangrene: Qualifiers: Obstruction and gangrene presence: without obstruction or gangrene Qualified Code(s): K42.9 - Umbilical hernia without obstruction or gangrene Code(s): K42.9 - Umbilical hernia without obstruction or gangrene Status: Acute Assessment and Plan: Established with general surgery with plans for surgical repair. CT demonstrates nonobstructed small bowel segment in small umbilical hernia. Additional Plan Discussed questionable gallstones vs polyps with general surgeon, Dr. Hoffman. Patient is established with Dr. Hoffman and has plans for upcoming umbilical hernia surgery. Dr. Hoffman advises repeat gallbladder ultrasound prior to surgery to consider cholecystectomy concurrent with hernia surgery. Subjective Date/time seen: 12/14/20 15:22 Interval history: Date of service: 12/14/2020 Jorge Alberto Iniguez is a 70-year-old male with history of coronary artery disease, diabetes mellitus, hyperlipidemia, and hypertension who is seen in follow-up for pancreatitis. He is doing well at this time. His epigastric pain has resolved. He denies nausea or vomiting. He is tolerating full liquid diet. He does complain of abdominal bloating. He had a bowel movement this morning. No abdominal pain or cramping. No shortness breath, cough, or chest pain. Review of Systems Review of Systems: All systems reviewed & are unremarkable except as noted in HPI and below Exam Narrative: Exam Narrative: Mr. Iniguez is a well-nourished, well-appearing 70-year-old male who is sitting in a chair by the bedside. He appears comfortable and i
[2020-12-14 16:20] LABS: Glucose Point of Care 135 mg/dl (65-105)
--- NOTE | 2020-12-14 16:28 | WPDGIPROGNO ---
Progress Note: A&P Assessment and Plan (1) Acute pancreatitis: Code(s): K85.90 - Acute pancreatitis without necrosis or infection, unspecified Status: Acute Assessment and Plan: improving, advance to low fat diet he can go home will follow-up with surgery- possible cholelithiasis he also will discontinue trulance (can cause pancreatitis) and will follow-up with his real estate listing consultant (2) Cholelithiasis: Code(s): K80.20 - Calculus of gallbladder without cholecystitis without obstruction Status: Acute (3) Diabetes mellitus: Qualifiers: Diabetes mellitus type: type 2 Diabetes mellitus senior care insulin use: with continuous churn buttermaker use Diabetes mellitus complication status: without complication Qualified Code(s): E11.9 - Type 2 diabetes mellitus without complications; Z79.4 - prison (current) use of insulin Code(s): E11.9 - Type 2 diabetes mellitus without complications Status: Acute (4) Umbilical hernia without mention of obstruction or gangrene: Qualifiers: Obstruction and gangrene presence: without obstruction or gangrene Qualified Code(s): K42.9 - Umbilical hernia without obstruction or gangrene Code(s): K42.9 - Umbilical hernia without obstruction or gangrene Status: Acute Subjective Date/time seen: 12/14/20 16:28 Interval history: feeling better, no nausea Review of Systems Review of Systems: All systems reviewed & are unremarkable except as noted in HPI and below Exam Const: General: comfortable and no acute distress HENMT: General nose exam: Normal nares present Eyes: General: appearance normal, both eyes and all related structures Neck: Neck: supple Resp: Effort & Inspection: normal respiratory effort Cardio: Rate: regular rate GI: Inspection: non-distended GI Palp: Yes Soft to palpation and No Tenderness to palpation present (GI) Auscultation: normal bowel sounds Other: small umbilical hernia Skin: General skin exam: no rashes or lesions noted Neuro: Speech: normal speech Motor exam (neuro): Normal motor muscle tone present throughout Extrem: General: normal to inspection Psych: Mental Status: mental status grossly normal Objective Data Vital Signs Vital Signs: Vital Signs - 24 hr 12/13/20 20:11 12/13/20 20:55 12/14/20 04:26 Temperature 97.8 F 98.3 F Pulse Rate 65 65 66 Respiratory Rate 16 16 Blood Pressure 133/63 121/62 Pulse Oximetry 98 95 12/14/20 07:57 12/14/20 14:00 Temperature 98.2 F Pulse Rate 60 69 Respiratory Rate 18 Blood Pressure 136/69 Pulse Oximetry 99 Intake/Output Intake/Output: Intake & Output 12/11/20 12/12/20 12/13/20 12/14/20 23:59 23:59 23:59 23:59 Intake Total 1000 2630 1810 Output Total 1700 200 Balance 8491 738 1570 Meds/Results Medications: Active Medications Generic Name Dose Route Start Last Admin Trade Name Freq PRN Reason Stop Dose Admin Acetaminophen 650 mg 12/13/20 16:25 Acetaminophen 325 Mg Tablet PO Q4H PRN Pain 1-3 Hydrocodone Bitart/Acetaminophen 1 tab 12/13/20 16:25 Hydrocodone/Acetaminophen (*Crx) 5-325 Mg Tablet PO Q6H PRN Pain Rated 4-6 Carvedilol 3.125 mg 12/12/20 22:25 12/14/20 07:57 Carvedilol 3.125 Mg Tablet PO 3.125 mg Q12HR CARSON Administration Dextrose 12.5 gm 12/13/20 07:43 Dextrose 50% 25 Gm/50 Ml Syringe IV PUSH PRN PRN Hypoglycemia Protocol Gabapentin 600 mg 12/12/20 22:45 12/14/20 14:53 Gabapentin 300 Mg Capsule PO 600 mg Q8HR CARSON Administration Glucagon 1 mg 12/13/20 07:43 Glucagon For Inj 1 Mg Vial IM PRN PRN Hypoglycemia Protocol Glucose 15 gm 12/13/20 07:43 Glucose Oral Gel 15 Gm Of Glucse In 37.5 Gm Tube PO PRN PRN Hypoglycemia Protocol Lactated Ringer's 1,000 mls @ 85 mls/hr 12/12/20 19:05 12/14/20 09:46 Lr - Lactated Ringers Iv IV CONT 85 mls/hr .[id number] CARSON Administration Dext
--- NOTE | 2020-12-15 15:24 | PM.DS ---
DS: Admitting Diagnosis Admitting Diagnosis Admitting Diagnosis: Acute pancreatitis DS: Discharge Diagnosis Discharge Diagnosis (1) Acute pancreatitis: Code(s): K85.90 - Acute pancreatitis without necrosis or infection, unspecified Status: Acute Assessment and Plan: Uncomplicated acute interstitial pancreatitis noted on CT. Lipase elevated up to 3600 with epigastric pain. He was seen in consultation by Gastroenterology. CT suggested gallstones with normal appearing gallbladder, however not present on RUQ ultrasound, which instead suggested polyps. LFTs and total bilirubin within normal limits. Denies recent alcohol use. Dulaglutide (GLP-1) may be responsible. He was rehydrated with IV fluids and lipase began to trend down. Diet was slowly advanced and he was able to tolerate a low-fat diet, which he should continue. Dulaglutide was discontinued. He should avoid alcohol use. (2) Type 2 diabetes mellitus with hyperglycemia, with long-term current use of insulin: Code(s): E11.65 - Type 2 diabetes mellitus with hyperglycemia; Z79.4 - assistant terminal manager (current) use of insulin Status: Acute Assessment and Plan: A1c is 7.7. Blood sugars were monitored and were well controlled with sliding scale insulin and home Lantus. Will discontinue his dulaglutide given his pancreatitis. I spoke with his community ambassador, Dr. Preciado via phone on 12/14/2020 who recommends starting Humalog 6 units t.i.d. with meals. He will need to monitor his blood sugars closely and follow-up with endocrinology in 1-2 weeks to review blood sugar log. (3) HTN (hypertension): Code(s): I10 - Essential (primary) hypertension Status: Acute Assessment and Plan: Blood pressures reviewed and were well controlled. Continue losartan and carvedilol (4) Left lower lobe pulmonary nodule: Code(s): R91.1 - Solitary pulmonary nodule Status: Acute Assessment and Plan: 4 mm left lower lobe nodule evident on CT abdomen/pelvis. Patient reports history of 1 pack per day smoking, however quit approximately 30 years ago. Recommendations for repeat chest CT in 1 year. Follow-up with PCP. (5) Umbilical hernia without mention of obstruction or gangrene: Qualifiers: Obstruction and gangrene presence: without obstruction or gangrene Qualified Code(s): K42.9 - Umbilical hernia without obstruction or gangrene Code(s): K42.9 - Umbilical hernia without obstruction or gangrene Status: Acute Assessment and Plan: Established with general surgery with plans for surgical repair. CT demonstrates nonobstructed small bowel segment in small umbilical hernia. (6) Abnormal CT scan: Code(s): R93.89 - Abnormal findings on diagnostic imaging of other specified body structures Status: Acute Assessment and Plan: CT scan showed calcified gallstones in the normal appearing gallbladder which were not identified on right upper quadrant ultrasound. Discussed questionable gallstones vs polyps with general surgeon, Dr. Hoffman. Patient is established with Dr. Hoffman and has plans for upcoming umbilical hernia surgery. Dr. Hoffman advises repeat gallbladder ultrasound prior to surgery to consider cholecystectomy concurrent with hernia surgery. DS: Summary Hospital Course Reason for hospitalization: Acute pancreatitis Hospital Course: Date of admission: 12/13/2019 Date of discharge: 12/15/2019 Jorge Alberto Iniguez is a 70-year-old male with history of coronary artery disease, diabetes mellitus, hyperlipidemia, and hypertension presented to the emergency department on 12/12/2020 with complaints epigastric pain worse with eating. Upon presentation to the emergency department, his BP was slightly elevated additional vital signs stable, CBC and BMP unremarkable, and CT abdomen/pelvis showed uncomplicated acute interstitial pancreatitis. He was admitted to the hospitalist service for further evaluat
== END 2020-12-14 18:28 | disposition home or self-care (01) | DRG 440 ==
LOC: ANHED 19:43 → ANH2MED 22:28
PROVIDERS: Admitting Provider Internal Medicine; Emergency Provider Emergency Medicine; PCP Student in an Organized Health Care Education/Training Program; Visit Provider Physician Assistant
DX: K85.80 Other acute pancreatitis without necrosis or infection (principal); E11.65 Type 2 diabetes mellitus with hyperglycemia; E11.42 Type 2 diabetes mellitus with diabetic polyneuropathy; K42.9 Umbilical hernia without obstruction or gangrene; K40.90 Unilateral inguinal hernia, without obstruction or gangrene, not specified as recurrent; R93.89 Abnormal findings on diagnostic imaging of other specified body structures; R91.1 Solitary pulmonary nodule; E78.5 Hyperlipidemia, unspecified; I25.10 Atherosclerotic heart disease of native coronary artery without angina pectoris; I10 Essential (primary) hypertension; Z79.4 Long term (current) use of insulin; Z79.82 Long term (current) use of aspirin; Z79.899 Other long term (current) drug therapy; Z87.891 Personal history of nicotine dependence
CPT/HCPCS: 36415; 74177; 76705; 80053; 81001; 82948; 83036; 83690; 85025; 85027; 93005; 96360; 99285; A9270; J1815; J7030; J7120; Q9967

== ENCOUNTER 2021-03-14 10:50 | Outpatient (CLI) | payer MEDICARE, SELFPAY ==
--- NOTE | ~2021-03-14 | XR_ITS ---
EXAMINATION: XR chest 2V DATE: 03/14/2021 11:33 INDICATION: COVID 19, cough TECHNIQUE: PA and lateral views of the chest are obtained. COMPARISON: 10/06/2012 FINDINGS: There are airspace opacities of the lower lung zones. There is no pleural effusion or pneum othorax. The cardiomediastinal silhouette is normal. There is moderate thoracic spondylosis. IMPRESSION: 1. Airspace opacities of the lower lung zones, likely COVID 19 pneumonia given the clinical history. Reviewed, dictated and finalized at location B.
== END 2021-03-14 10:51 | disposition home or self-care (01) ==
PROVIDERS: PCP Student in an Organized Health Care Education/Training Program; Visit Provider Student in an Organized Health Care Education/Training Program
DX: U07.1 COVID-19 (principal); R05 Cough; R91.8 Other nonspecific abnormal finding of lung field
CPT/HCPCS: 71046

== ENCOUNTER 2021-12-18 11:01 | Outpatient (CLI) | payer MEDICARE, SELFPAY ==
--- NOTE | ~2021-12-18 | US_ITS ---
EXAMINATION: US abdomen limited DATE: 12/18/2021 11:30 INDICATION: Cholesterolosis of the gallbladder. Gallbladder polyp. TECHNIQUE: Multiple grayscale and Doppler ultrasound images of the abdomen were obtained. COMPARISON: Ultrasound 12/13/2020, CT abdomen and pelvis 12/12/2020 FINDINGS: The visualized portions of the head, body, and tail of the pancreas are normal. The liver i s normal without focal lesion. There is normal flow in main portal vein. The gallbladder is normal in size. No gallstones. There are polyps in the gallbladder measuring up to 5 mm. The common duct is no rmal and measures 3 mm. IMPRESSION: 1. Gallbladder polyps measuring up to 5 mm, likely benign. No follow-up is needed. Reviewed, dictated and finalized at location B. IMPRESSION: 1. Gallbladder polyps measuring up to 5 mm, likely benign. No follow-up is need ed.
== END 2021-12-18 11:02 | disposition home or self-care (01) ==
PROVIDERS: PCP Student in an Organized Health Care Education/Training Program; Visit Provider Surgery
DX: K82.4 Cholesterolosis of gallbladder (principal)
CPT/HCPCS: 76705

== ENCOUNTER 2022-05-18 17:10 | Emergency (ER) | payer MEDICARE, SELFPAY ==
--- NOTE | ~2022-05-18 | XR_ITS ---
XR chest 2V DATE: 05/18/2022 18:13 INDICATION: Fever. Recent chemotherapy. Pancreatic cancer. TECHNIQUE: 2 views, PA and lateral projections COMPARISON: 03/14/2021 2 view chest FINDINGS: Normal heart size. Suggestion of coronary artery stent. No hilar or mediastinal enlargement . Right Port-A-Cath catheter tip overlies the superior vena cava. No pulmonary infiltrate or consolidation, pleural effusion or pulmonary vascular congestion or pneumo thorax is detected. IMPRESSION: Interval placement of right Port-A-Cath in superior vena cava No active cardiac pulmonary disease Reviewed, dictated and finalized at location A. [employer]
[2022-05-18 17:27] VITALS: BP 148/60; PULSE 94; RESP 16; TEMP 38.8; O2SAT 100
--- NOTE | 2022-05-18 18:07 | ED.FEVER ---
HPI - Fever General Chief Complaint: Fever Stated Complaint: fever Time Seen by Provider: 05/18/22 17:25 History of Present Illness HPI Narrative: Patient is a 71-year-old male with a history of pancreatic cancer here for evaluation of fever. Patient had his first dose of chemotherapy 4 days ago through his port. He started to feel unwell today with chills and fatigue, so he took his temperature and noted it was 101 degrees. He has not taken any fever reducing agents. His oncologist is Dr. Fatmata Good at [facility][Note 3]. He was not in contact with his oncologist today. He notes mild sore throat, but he denies any cough, congestion, nausea, vomiting, leg swelling, chest pain, shortness of breath or diarrhea. No sick contacts. Patient has been experiencing abdominal pain for the past several months and has been attributed to his pancreatic cancer; today is actually better than what it has been in the past. Related Data Home Medications Medication Instructions Recorded Confirmed aspirin 81 mg tablet,delayed 81 mg PO DAILY 06/23/19 03/18/22 release (Aspir-) carvedilol 3.125 mg tablet 3.125 mg PO Q12H 06/23/19 03/18/22 ezetimibe 10 mg tablet 10 mg PO DAILY 06/23/19 03/18/22 losartan 50 mg tablet 50 mg PO DAILY 10/17/20 03/18/22 multivitamin 1 tablet PO DAILY 10/17/20 03/18/22 rosuvastatin 5 mg tablet 5 mg PO QPM 12/12/20 03/18/22 empagliflozin 25 mg tablet 25 mg PO QAM 12/10/21 03/18/22 (Jardiance) gabapentin 800 mg tablet 800 mg PO TID 03/18/22 03/18/22 ibuprofen 200 mg capsule 200 mg PO Q6H PRN 03/18/22 03/18/22 Allergies Allergy/AdvReac Type Severity Reaction Status Date / Time Sulfa (Sulfonamide Allergy Intermediate Rash Verified 03/18/22 11:25 Antibiotics) atorvastatin Allergy Unknown Myalgias Verified 03/18/22 11:25 dulaglutide [From Trulicity] AdvReac Intermediate Other Verified 03/18/22 11:25 Review of Systems Review of Systems: Gen.: Reports fevers. Eyes: Denies eye pain or visual change ENT: Reports sore throat. Respiratory: Denies shortness of breath or cough CV: Denies chest pain or palpitations GI: Denies abdominal pain nausea, emesis or diarrhea denies burning, urgency, frequency or hematuria Musculoskeletal: Denies back pain or muscle pain Neuro: Denies numbness, tingling, weakness or focal weakness Skin: Denies rash Except as documented, all other systems reviewed and negative [facility] Past Medical History Medical History Cholelithiasis Diabetes mellitus Epigastric pain High cholesterol HTN (hypertension) Nausea Surgical History Surgical History H/O lumpectomy H/O right inguinal hernia repair S/P coronary artery stent placement Family History Family History Father Diabetes mellitus Hypertension Family history of elevated blood lipids Other Family history of cardiovascular disease Family history of coronary artery disease Family history of malignant neoplasm of uterus Social History Social History Smoking status: Former smoker Second hand tobacco smoke exposure: No Smoking end date: 07/07/82 Alcohol intake: current Drinks per week: 4 Substance use: never Gender identity (if verbalized by the patient): Male Spiritual care concerns: No Exam Narrative: APPEARANCE: Well appearing, no pain in distress, well-nourished. Head: Normocephalic and atraumatic. EYES: PERRLA/EOMI, conjunctivae clear NOSE: No nasal drainage EARS: External ear normal in appearance THROAT: 2 mm ulceration noted to the soft palate arch on the right NECK: Supple. No adenopathy, no masses. RESPIRATORY: Airway patent, respirations nonlabored. Clear to auscultation bilaterally, no rales, rhonchi, wheezing. CARDIOVASCULAR: Regular rate and rhythm wit
[2022-05-18] MEDS: ACETAMINOPHEN 500 MG TABLET 1000 MG PO (18:33)
[2022-05-18] MEDS: SODIUM CHLORIDE 0.9% IV 1,000 ML 999 ML IV CONT (18:34)
[2022-05-18 18:57] VITALS: BP 143/61; PULSE 81; RESP 20; O2SAT 97
[2022-05-18 19:05] LABS: Basophils Percent Auto 0.3 % (0.2-1.2); Eosinophils Absolute Auto 0.1 K/mm3 (0-0.3); Eosinophils Percent Auto 0.9 % (0-4.4); Hematocrit 26.9 % (42.0-52.0); Hemoglobin 8.9 g/dL (14.0-18.0); Immature Granulocyte Absolute 0.08 K/mm3 (0.00-0.031); Immature Granulocyte Percent A 1.1 % (0-0.5); Lymphocytes Absolute Auto 0.74 K/mm3 (0.9-3.2); Lymphocytes Percent Auto 9.8 % (18.3-44.2); Mean Corpuscular HGB Conc 33.1 g/dl (32-36); Mean Corpuscular Hemoglobin 28.2 pg (26-34); Mean Corpuscular Volume 85.1 fl (80-100); Mean Platelet Volume 9.7 fl (7.4-10.4); Monocytes Absolute Auto 0.2 K/mm3 (0.1-0.6); Neutrophils Absolute Auto 6.5 K/mm3 (1.3-6.7); Neutrophils Percent Auto 85.9 % (45.5-73.1); Platelet Count Result 157 k/mm3 (150-375); Red Blood Count 3.16 M/mm3 (4.6-6.20); White Blood Count 7.6 K/mm3 (4.5-10.0)
[2022-05-18 19:07] LABS: Appearance Urine Clear (Clear); Bilirubin Urine Negative (Negative); Blood Urine Trace-intact (Negative); Color Urine Yellow (Yellow); Glucose Urine UA Negative (Negative); Ketones Urine Trace mg/dL (Negative); Leukocyte Esterase Ur Negative LEU/UL (Negative); Nitrate Urine Negative (Negative); Protein Urine 1+ mg/dL (Negative); Specific Grav Ur 1.015 (1.001-1.035); pH Urine 5.5 (5.0-9.0)
[2022-05-18 19:11] LABS: RBC Urine 0-2 /hpf (0-2); Squamous Epithelial Cell Urine Rare /hpf (Few); WBC Urine 0-3 /hpf
[2022-05-18 19:15] LABS: Lipase 14 U/L (23-300)
[2022-05-18 19:16] LABS: Add Urine Microscopic? YES
[2022-05-18 19:17] VITALS: BP 133/58; PULSE 83; RESP 16; O2SAT 97
--- NOTE | 2022-05-18 19:18 | PC.NURSE ---
Assumed care of pt at this time. Pt alert and upright on stretcher, updated on POC.
[2022-05-18 19:36] LABS: Alanine Aminotransferase 13 U/L (6-50); Albumin Level 3.6 g/dL (3.5-5.1); Alkaline Phosphatase 91 U/L (38-126); Anion Gap 13 mmol/L (8-16); Aspartate Amino Transferase 22 U/L (17-59); Blood Urea Nitrogen 22 mg/dL (9-20); Calcium 8.4 mg/dL (8.4-10.2); Carbon Dioxide 27 mmol/L (22-30); Chloride 93 mmol/L (98-107); Estimated CRCL calculation 79 ml/min; Estimated Glomerular Filt Rate > 60; Glucose 154 mg/dL (65-110); Potassium 3.8 mmol/L (3.4-5.0); Sodium 133 mmol/L (137-145)
[2022-05-18 19:49] LABS: Influenza A QL RT-PCR Negative (Negative); Influenza B QL RT-PCR Negative (Negative); SARS-CoV-2 RNA PCR Negative
[2022-05-18 19:55] VITALS: TEMP 37.7
--- NOTE | 2022-05-18 19:56 | PC.NURSE ---
Called pharmacy about pt medication, spoke with Rosa M. Will send to ED as soon as possible.
[2022-05-18 20:05] VITALS: BP 125/51; PULSE 79; RESP 19; O2SAT 95
[2022-05-18] MEDS: MAGNES & ALUM HYD/SIMETH/DIPHENHYD/LIDOCAINE 119 ML MOUTHWASH BY MOUTH (20:42)
[2022-05-18 20:49] VITALS: BP 121/48; PULSE 80; RESP 20; O2SAT 97
== END 2022-05-18 20:49 | disposition home or self-care (01) ==
PROVIDERS: Physician Assistant; Emergency Provider General Practice; PCP Student in an Organized Health Care Education/Training Program
DX: R50.9 Fever, unspecified (principal); E11.9 Type 2 diabetes mellitus without complications; I10 Essential (primary) hypertension; Z87.891 Personal history of nicotine dependence; Z20.822 Contact with and (suspected) exposure to COVID-19
CPT/HCPCS: 36415; 71046; 80053; 81001; 83605; 83690; 85025; 87040; 87081; 87502; 87880; 96360; 99283; A9270; J7030; U0003; U0005

== ENCOUNTER 2022-05-31 08:36 | Emergency (ER) | payer MEDICARE, SELFPAY ==
[2022-05-31] VITALS (21 sets, daily range): BP systolic 141–152; BP diastolic 70–84; PULSE 76–99; RESP 15–23; TEMP 36.4; O2SAT 97–100
--- NOTE | ~2022-05-31 | XR_ITS ---
XR chest 2V DATE: 05/31/2022 12:58 INDICATION: Immunosuppressed patient. Weakness. TECHNIQUE: AP and lateral views COMPARISON: 05/18/2022 2 view chest FINDINGS: Moderate hyperinflation. No pulmonary infiltrate or consolidation, pleural effusion or pulm onary vascular congestion or pneumothorax. Heart size appears within normal range. Right Port-A-Cath catheter tip overlies superior vena cava. IMPRESSION: No active cardiopulmonary disease Right Port-A-Cath Reviewed, dictated and finalized at location A. [employer]
[2022-05-31 09:20] LABS: Eosinophils Percent Auto 1.7 % (0-4.4); Hematocrit 25.4 % (42.0-52.0); Hemoglobin 8.5 g/dL (14.0-18.0); Immature Granulocyte Absolute 0.02 K/mm3 (0.00-0.031); Immature Granulocyte Percent A 0.8 % (0-0.5); Lymphocytes Percent Auto 12.4 % (18.3-44.2); Mean Corpuscular HGB Conc 33.5 g/dl (32-36); Mean Corpuscular Hemoglobin 29.1 pg (26-34); Mean Platelet Volume 9.7 fl (7.4-10.4); Monocytes Absolute Auto 0.1 K/mm3 (0.1-0.6); Monocytes Percent Auto 2.5 % (2.6-8.5); Neutrophils Percent Auto 82.6 % (45.5-73.1); Platelet Count Result 144 k/mm3 (150-375); Red Blood Count 2.92 M/mm3 (4.6-6.20); Red Cell Distribution Width 12.3 % (11.5-14.5); White Blood Count 2.4 K/mm3 (4.5-10.0)
--- NOTE | 2022-05-31 09:29 | ED.WEAKNESS ---
HPI - Weakness General Chief complaint: Weakness Stated complaint: DEHYDRATION R/T CHEMO Time Seen by Provider: 05/31/22 08:55 History of Present Illness HPI Narrative: Patient is a 71-year-old male with a history of pancreatic cancer, currently receiving chemo, follows at [facility], here for evaluation of weakness. Patient states over the past day and half, he has had little appetite due to nausea and has also felt generally weak. States he has been unable to get up and walk like he usually does, and he has had very little p.o. intake due to feeling nauseated. Patient attempted a prochlorperazine which he is prescribed for nausea without relief of his symptoms. He denies any chest pain, fevers or chills, vomiting, diarrhea, abdominal pain. Does note decreased urinary output which he attributes to decreased p.o. He has received 3 doses of chemo in total. Related Data Home Medications Medication Instructions Recorded Confirmed aspirin 81 mg tablet,delayed 81 mg PO DAILY 06/23/19 03/18/22 release (Aspir-) carvedilol 3.125 mg tablet 3.125 mg PO Q12H 06/23/19 03/18/22 ezetimibe 10 mg tablet 10 mg PO DAILY 06/23/19 03/18/22 losartan 50 mg tablet 50 mg PO DAILY 10/17/20 03/18/22 multivitamin 1 tablet PO DAILY 10/17/20 03/18/22 rosuvastatin 5 mg tablet 5 mg PO QPM 12/12/20 03/18/22 gabapentin 800 mg tablet 800 mg PO TID 03/18/22 03/18/22 ibuprofen 200 mg capsule 200 mg PO Q6H PRN 03/18/22 03/18/22 Allergies Allergy/AdvReac Type Severity Reaction Status Date / Time Sulfa (Sulfonamide Allergy Intermediate Rash Verified 03/18/22 11:25 Antibiotics) atorvastatin Allergy Unknown Myalgias Verified 03/18/22 11:25 dulaglutide [From [facility]] AdvReac Intermediate Other Verified 03/18/22 11:25 Review of Systems Review of Systems: Gen: Reports weakness. Denies fevers or chills Eyes: Denies eye pain or visual change ENT: Denies congestion Respiratory: Denies shortness of breath or cough CV: Denies chest pain or palpitations GI: Reports nausea. Denies abdominal pain, emesis or diarrhea : denies burning, urgency, frequency or hematuria Musculoskeletal: Denies back pain or muscle pain Neuro: Denies numbness, tingling, weakness or focal weakness Skin: Denies rash Except as documented, all other systems reviewed and negative [facility] Past Medical History Medical History Cholelithiasis Diabetes mellitus Epigastric pain High cholesterol HTN (hypertension) Nausea Surgical History Surgical History H/O lumpectomy H/O right inguinal hernia repair S/P coronary artery stent placement Family History Family History Father Diabetes mellitus Hypertension Family history of elevated blood lipids Other Family history of cardiovascular disease Family history of coronary artery disease Family history of malignant neoplasm of uterus Social History Social History Smoking status: Former smoker Second hand tobacco smoke exposure: No Smoking end date: 07/07/82 Alcohol intake: current Drinks per week: 4 Substance use: never Gender identity (if verbalized by the patient): Male Spiritual care concerns: No Exam Narrative: APPEARANCE: Well appearing, no pain in distress, well-nourished. Head: Normocephalic and atraumatic. EYES: PERRLA/EOMI, conjunctivae clear NOSE: No nasal drainage EARS: External ear normal in appearance THROAT: Oropharynx is clear. Mucous membranes are moist. NECK: Supple. No adenopathy, no masses. RESPIRATORY: Airway patent, respirations nonlabored. Clear to auscultation bilaterally, no rales, rhonchi, wheezing. CARDIOVASCULAR: Regular rate and rhythm without murmurs, rubs, or gallops. ABDOMINAL: Normoactive bowel sounds. Soft, nontender, nondistended
[2022-05-31 09:36] LABS: Lactic Acid Reflex 0.9 mmol/L (0.7-2.0)
[2022-05-31 09:37] LABS: Alanine Aminotransferase 46 U/L (6-50); Albumin Level 3.6 g/dL (3.5-5.1); Alkaline Phosphatase 88 U/L (38-126); Anion Gap 10 mmol/L (8-16); Aspartate Amino Transferase 91 U/L (17-59); Bilirubin,Total 1.4 mg/dL (0.2-1.3); Blood Urea Nitrogen 16 mg/dL (9-20); Calcium 8.4 mg/dL (8.4-10.2); Carbon Dioxide 25 mmol/L (22-30); Chloride 97 mmol/L (98-107); Estimated CRCL calculation 92 ml/min; Estimated Glomerular Filt Rate > 60; Glucose 207 mg/dL (65-110); Potassium 4.5 mmol/L (3.4-5.0); Sodium 132 mmol/L (137-145)
[2022-05-31] MEDS: ONDANSETRON INJ 4 MG/2 ML VIAL IV PUSH ×2 (09:41→13:52)
[2022-05-31] MEDS: SODIUM CHLORIDE 0.9% IV 1,000 ML 999 ML IV CONT (09:41)
[2022-05-31 09:49] LABS: Appearance Urine Clear (Clear); Bilirubin Urine Negative (Negative); Blood Urine Negative (Negative); Color Urine Yellow (Yellow); Glucose Urine UA Negative (Negative); Ketones Urine 2+ mg/dL (Negative); Leukocyte Esterase Ur Negative LEU/UL (Negative); Nitrate Urine Negative (Negative); Protein Urine 1+ mg/dL (Negative); Urobilinogen Urine 0.2 mg/dL (<2.0); pH Urine 5.5 (5.0-9.0)
[2022-05-31 10:17] LABS: Add Urine Microscopic? YES
[2022-05-31 10:18] LABS: Bacteria Urine Trace /hpf; Squamous Epithelial Cell Urine Rare /hpf (Few)
[2022-05-31] MEDS: SODIUM CHLORIDE 0.9% IV 500 ML 999 ML IV CONT (13:42)
== END 2022-05-31 15:04 | disposition home or self-care (01) ==
PROVIDERS: Emergency Provider Physician Assistant; PCP Student in an Organized Health Care Education/Training Program
DX: R11.2 Nausea with vomiting, unspecified (principal); T45.1X5A Adverse effect of antineoplastic and immunosuppressive drugs, initial encounter; C25.9 Malignant neoplasm of pancreas, unspecified; E11.9 Type 2 diabetes mellitus without complications; E78.00 Pure hypercholesterolemia, unspecified; I10 Essential (primary) hypertension; Z95.5 Presence of coronary angioplasty implant and graft; Z87.891 Personal history of nicotine dependence; Z79.82 Long term (current) use of aspirin; Z79.4 Long term (current) use of insulin; Z79.84 Long term (current) use of oral hypoglycemic drugs
CPT/HCPCS: 36415; 71046; 80053; 81001; 83605; 85025; 86850; 86900; 86901; 96361; 96374; 96375; 99284; J2405; J7030; J7040